=== PATIENT | female | born 1975 | race Caucasian/White ===

== ENCOUNTER 2019-12-27 08:43 | Outpatient (CLI) | payer OTHER ==
--- NOTE | 2019-12-27 11:16 | MRI ---
MRI OF THE LEFT INDEX FINGER WITH AND WITHOUT IV CONTRAST: INDICATION: History of left index finger mass for 6 months that has been painful for the last 2 months. COMPARISON: None. TECHNIQUE: Multiple multisequence MR images were obtained of the left index finger with and without contrast uti lizing 14 cc of MultiHance. A surface marker placed over the region of interest. FINDINGS: Motion artifact, particularly on the delayed series sequences, limits image detail. Within the palpable region of interest is a 9.6 x 9.3 mm T2 hyperintense, intermediate T1 signal inte nsity mass that centered in the region of the left index finger eponychium. The lesion does demonstrate mild enhancement. There is no definite abnormal enhancement or signal abnormality involvi ng the underlying bone or nail bed itself. The extensor digitorum communis tendon in this region appears intact. No tenosynovitis is evident. IMPRESSION: A focal T2 hyperintense, mildly enhancing soft tissue mass lesion involving the eponychium of the lef t index anger is suspicious for an inflammatory granulomatous-type mass possibly related to prior infection or trauma. No adjacent tendon or osseous abnormality is demonstrated. Transcribed Date/Time: 12/27/2019 11:48 AM
== END 2019-12-27 08:44 | disposition home or self-care (01) ==
LOC: SCSMRI 08:43
PROVIDERS: ATTEND Orthopaedic Surgery
DX: R22.32 Localized swelling, mass and lump, left upper limb (principal)